=== PATIENT | female | born 1970 | race Caucasian/White ===

== ENCOUNTER 2022-01-18 20:08 | Emergency (ER) | payer OTHER ==
[~2022-01-18] VITALS: Ht 162.6 cm; Wt 49.0 kg
--- NOTE | 2022-01-18 20:30 | NUR ---
TO ER BED 10. BIBS C/O MECHANICAL TRIP AND FALL ON WATER AT WORK, LANDED ON BUTTOCKS C/O MID LOWER BACK PAIN RADIATING DOWN LEFT LEG. -HT -KO. . PT AAOX4. AMBULATORY WITH STEADY GAIT. BREATHING IS EVEN AND NONLABORED. CONNECTED TO MONITOR. AWAITING MD FLOWERS
[2022-01-18] MEDS ORDERED: HYDROCODONE/APAP 5/325MG TABLET ONE ×3 (21:08)
[2022-01-18] MEDS ORDERED: HYDROCODONE/APAP 5/325MG TABLET PO ONE (21:30)
[2022-01-18] MEDS ORDERED: KETOROLAC TROMETHAMINE INJ 30 MG/ML VIAL ONE (22:58)
[2022-01-18] MEDS ORDERED: CYCLOBENZAPRINE 10 MG TABLET ONE (22:58)
[2022-01-18] MEDS ORDERED: KETOROLAC TROMETHAMINE INJ 30 MG/ML VIAL IM ONE (23:00)
[2022-01-18] MEDS ORDERED: CYCLOBENZAPRINE 10 MG TABLET PO ONE (23:00)
[2022-01-18] MEDS ORDERED: IBUP-1957 PO (23:21)
[2022-01-18] MEDS ORDERED: CYCL10TA9 PO (23:21)
--- NOTE | 2022-01-18 23:54 | NUR ---
Patient discharged to home in stable condition. Written and verbal after care instructions given. Patient verbalizes understanding of instruction.
[2022-01-18 23:55] VITALS: BP 113/61
== END 2022-01-18 23:55 | disposition home or self-care (01) ==
LOC: ER 20:20
DX: M54.16 Radiculopathy, lumbar region (principal); M54.50 Low back pain, unspecified; W01.0XXA Fall on same level from slipping, tripping and stumbling without subsequent striking against object, initial encounter; Y93.89 Activity, other specified; Y92.89 Other specified places as the place of occurrence of the external cause; Y99.0 Civilian activity done for income or pay
CPT/HCPCS: 72131; 96372; 99284; J1885

== ENCOUNTER 2022-02-26 22:54 | Emergency (ER) | payer SELFPAY ==
[~2022-02-26] VITALS: Ht 160 cm; Wt 47.6 kg
[~2022-02-26 22:54] MED LIST: CYCL10TA9 PO; IBUP-1957 PO
[2022-02-26] MEDS ORDERED: LIDOCAINE 1%-EPI 1:100,000 20 ML VIAL TP ONE (23:30)
[2022-02-26] MEDS ORDERED: TDAP [DIPH/PERTUSSIS/TET] 0.5 ML VIAL IM ONE (23:30)
--- NOTE | 2022-02-26 23:50 | NUR ---
ACIDIZER AT PT'S BEDSIDE
[2022-02-27 01:06] VITALS: BP 123/70
--- NOTE | 2022-02-27 01:06 | NUR ---
Patient discharged to home in stable condition. Written and verbal after care instructions given. Patient verbalizes understanding of instruction.
[2022-02-27] MEDS ORDERED: NAPR-1192 PO (01:09)
== END 2022-02-27 01:16 | disposition home or self-care (01) ==
LOC: ER 22:57
DX: S91.011A Laceration without foreign body, right ankle, initial encounter (principal); S86.021A Laceration of right Achilles tendon, initial encounter; Z79.899 Other long term (current) drug therapy; W22.8XXA Striking against or struck by other objects, initial encounter; Y93.89 Activity, other specified; Y92.89 Other specified places as the place of occurrence of the external cause; Y99.8 Other external cause status
CPT/HCPCS: 12002; 99284; 90471; 90715; 73630; 36415; 80320; J3490; A6403; G0480